=== PATIENT | female | born 1940 | race Caucasian/White ===

== ENCOUNTER → 2018-03-22 | Outpatient (CLI) | payer OTHER ==
--- NOTE | 2018-03-31 21:57 | PROC ---
[address] [address] PROCEDURE REPORT Name: TORIE JONESHELEN Rodriguez Room: [facility]#: [id number] Admission: 03/22/18 Attend Phys: Dudley Guevara MD Discharge: Date of : 36 Report #: [id number] THIS REPORT FOR: //name// CC: Dr. 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 PROCEDURE: Nasopharyngolaryngoscopy. FINDINGS: On nasopharyngolaryngoscopy, after administration of a small amount of 2% viscous lidocaine to the left nostril as well as a small amount orally, there were no visible lesions in the nasopharynx or posterior pharynx. The true vocal cords were normally mobile bilaterally without any visible lesions. So, the patient is being staged and a management plan will be formulated for her anaplastic thyroid cancer. Thank you for allowing me to participate in the care of this patient. <ELECTRONICALLY SIGNED> By: Dudley Guevara MD 03/31/18 [id number] [id number] MD marco Mcknight
--- NOTE | 2018-03-31 23:46 | CON ---
[address] [address] CONSULTATION Name: MANASALUISSUSANNE L Room: [facility]#: [id number] Admission: 03/22/18 Attend Phys: Dudley Guevara MD Discharge: Date of : 36 Report #: [id number] THIS REPORT FOR: //name// CC: Dr. Humaira Guevara MD DATE OF SERVICE: 03/22/2018 [facility] phone: [phone] REFERRING PHYSICIANS: Attila Herrera MD and Humaira Talbert DO. 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 The anaplastic thyroid cancers are all stage IV and depending on what the further staging workup shows, will be either stage LEAH, IVB or IVC. HISTORY OF PRESENT ILLNESS: The patient is an 78-year-old woman who had a pretty stable thyroid mass for years and then in October, she thought that it started to grow and started causing some discomfort. She had an ultrasound of the thyroid gland performed on 01/23/2018, which showed a solid mass in the sublingual region that measured about 4.1 cm x 3.1 cm x 3.1 cm. 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 The pathology from that showed an anaplastic thyroid cancer arising in a lower grade thyroid carcinoma. About 20% of the cancer was anaplastic thyroid cancer. The tumor measured about 4.5 cm. The margins were free of involvement, but the tumor focally extended to 0.1 cm of the surgical margin There was extensive vascular invasion and capsular invasion. The total thyroidectomy specimen revealed Soraya's thyroiditis and the left shoulder pathology revealed a lipoma and she has done well postoperatively. She had her levothyroxine increased from 100 mcg to 150 mcg and she felt like she may be a little more anxious on 150 mcg levothyroxine. She she presents to discuss possible adjuvant therapy. PAST MEDICAL HISTORY AND PAST SURGICAL HISTORY: She has hyperlipidemia, hypertension. MEDICATIONS: Includes alprazolam as needed, amlodipine, atorvastatin, Bystolic, clonidine, hydralazine. She is on 150 mcg of levothyroxine, metronidazole, ondansetron, 5 mg oxycodone/325 mg acetaminophen as needed, and venlafaxine. ALLERGIES: She has no known drug allergies. OBSTETRICS AND GYNECOLOGY: She is 2, para 4, [place] [address] [address] CONSULTATION Name: SUSANNE JONES Room: [facility] [address] Hillary#: [id number] Admission: 03/22/18 Attend Phys: Dudley Guevara MD Discharge: Date of : 36 Report #: [id number] FAMILY HISTORY: Mother had breast cancer and maternal aunt had cancer. Paternal family also seems to have had cancer, but the patient does not know what type. Also several family members have Soraya's thyroiditis. SOCIAL HISTORY: The patient is retired. She went to high school. She has 4 daughters. Ethanol: She does not drink alcohol containing drinks. Cigarettes: She does not smoke cigarettes. REVIEW OF SYSTEMS: GENERAL: She denied having any fevers or chills. SKIN: She denied having color changes, itching, or bruising. LYMPH NODES: She had no enlarged or painful glands in the neck. ENDOCRINE: She had a mild increased thirst. HEMATOLOGY/IMMUNOLOGY: She denied having any recent bleeding. MUSCULOSKELETAL: She denied having any arthritis or painful swollen joints. HEAD AND NECK: Since surgery, she has had just slight difficulty when she eats food too fast, and she may have a slightly raspy voice. RESPIRATION: She denied having shortness of breath. CARDIOVASCULAR: She denied having palpitations. GASTROINTESTINAL: She denied having nausea or vomiting. NEUROLOGIC: No focal weakness. She has chronic vertigo, which causes balance issues. PHYSICAL EXAMINATION: VITAL SIGNS: Height 5 feet 6 inches, weight 140.6 pounds, blood pressure 166/78, pulse 67, oxygen saturation 97%, respirations 20. GENERAL: The patient is alert, oriented, in no acute distress. LYMPH NODES: She had no cervical or supraclavicular lymphadenopathy. EYES: Pupils were equal, round and reactive to light and accommodation. Extraocular movements were intact. HEAD, EARS, NOSE AND THROAT: Mouth had no suspicious visible lesions or palpable lesions. On nasopharyngolaryngoscopy, after application of 2% viscous lidocaine in the left nostril, there were no visible lesions in the nostril. There were no visible lesions in the posterior oropharynx. The true vocal cords were normally mobile bilaterally without any visible lesions. NECK: The patient has a well-healed surgical incision in the front of the neck where she had a thyroidectomy. HEART: Had a regular rate and rhythm without murmur. LUNGS: were clear to auscultation. ABDOMEN: Not tender. Spleen was not palpable. Liver was at the costal margin. EXTREMITIES: No clubbing, cyanosis or edema. NEUROLOGIC: Cranial nerves II to XII were intact. Sensation was intact. She had 5/5 strength in her extremities. ASSESSMENT AND PLAN: The patient has findings consistent with an anaplastic thyroid cancer arising out of a field of low-grade thyroid cancer in the neck area. So a PET/CT scan will be ordered to complete staging. If this is localized anaplastic thyroid cancer, then [place] [address] CONSULTATION Name: SUSANNE JONES Room: [facility]#: [id number] Admission: 03/22/18 Attend Phys: Dudley Guevara MD Discharge: Date of : 36 Report #: [id number] the patient and the patient will be referred to a medical oncologist since there has been some promising survival data with adding chemotherapy to radiation therapy. That promising data can be found in the study from [facility] . That article was entitled "anaplastic thyroid carcinoma, single-institutional experience using aggressive multimodal therapy". In that study, the patient underwent a thyroidectomy followed by radiation with sensitizing chemotherapy and they did have an overall 1 year survival rate of 70% and historically the survival rate with adjuvant radiation afterwards is about 20%. So, she will be referred to a medical oncologist after the PET/CT scan and then I will see the patient as well and then help formulate a treatment management plan for the patient after that staging workup is complete. She felt a little bit increased anxiety with her levothyroxine increased from 100 mcg per day to 150 mcg per day, so the levothyroxine was lowered slightly to 125 mcg per day to see if she tolerates that better and that will continue to be monitored. Thank you very much for this consult. <ELECTRONICALLY SIGNED> By: Dudley Guevara MD 03/31/18 [id number] Guevara MD /nt
== END | disposition home or self-care (01) ==
LOC: M.RTH 01:28
DX: C73 Malignant neoplasm of thyroid gland (principal); I10 Essential (primary) hypertension; E78.5 Hyperlipidemia, unspecified; Z79.899 Other long term (current) drug therapy; Z80.3 Family history of malignant neoplasm of breast; Z98.890 Other specified postprocedural states